=== PATIENT | male | born 1980 | race Caucasian/White ===

== ENCOUNTER 2017-06-06 18:38 | Emergency (ER) | payer SELFPAY ==
[2017-06-06] MEDS ORDERED: Ketorolac 60 MG/2 ML SDV IM ONE (19:06)
[2017-06-06] MEDS ORDERED: Albuterol/Ipratropium 3.0-0.5 MG/3 ML Neb Soln NEB ONE (19:06)
--- NOTE | 2017-06-06 19:14 | EDM.PDOC ---
ED HPI GENERAL MEDICAL PROBLEM - General Chief Complaint: Respiratory Problem Stated Complaint: CEHST PAIN Time Seen by Provider: 06/06/17 19:00 Source of Information: Reports: Patient History Limitations: Reports: No Limitations - History of Present Illness INITIAL COMMENTS - FREE TEXT/NARRATIVE: History of present illness: [36-year-old male comes in complaining of cough, rib pain with cough, and intermittent shortness of breath.] Review of systems: As per history of present illness and below otherwise all systems reviewed and negative. Past medical history: As per history of present illness and as reviewed below otherwise noncontributory. Surgical history: As per history of present illness and as reviewed below otherwise noncontributory. Social history: No reported history of drug or alcohol abuse. Family history: As per history of present illness and as reviewed below otherwise noncontributory. Physical exam: HEENT: Atraumatic, normocephalic, pupils reactive, negative for conjunctival pallor or scleral icterus, mucous membranes moist with orophangeal erythema, neck supple, nontender, trachea midline. Lungs: Clear to auscultation, breath sounds equal bilaterally, chest nontender. Heart: S1S2, regular, negative for clicks, rubs, or JVD. Abdomen: Soft, nondistended, nontender. Negative for masses or hepatosplenomegaly. Negative for costovertebral tenderness. Pelvis: Stable nontender. Genitourinary: Deferred. Rectal: Deferred. Extremities: Atraumatic, negative for cords or calf pain. Neurovascular unremarkable. Neuro: Awake, alert, oriented. Cranial nerves II through XII unremarkable. Cerebellum unremarkable. Motor and sensory unremarkable throughout. Exam nonfocal. Diagnostics: [Chest x-ray, CBC, CMP, influenza AB] Therapeutics: [Duo Neb] Impression: [Influenza A] Plan: [inhaler, spacer] Definitive disposition and diagnosis as appropriate pending reevaluation and review of above. Left Rib/Back Pain Score (Numeric/FACES): 7 - Related Data Allergies Allergy/AdvReac Type Severity Reaction Status Date / Time No Known Allergies Allergy Verified 06/06/17 19:08 Home Meds: Home Meds . [No Known Home Meds] 06/06/17 [History] ED ROS GENERAL - Review of Systems Review Of Systems: See Below (History of present illness) ED EXAM, GENERAL - Physical Exam Exam: See Below (See history of present illness) Course - Vital Signs Last Recorded V/S: Last Vital Signs Temp 37.8 C 06/06/17 19:09 Pulse 94 06/06/17 19:09 Resp 18 06/06/17 19:09 BP 131/60 06/06/17 19:09 Pulse Ox 94 L 06/06/17 19:09 - Orders/Labs/Meds Orders: Active Orders 24 hr Category Date Time Status RT Aerosol Therapy [RC] ASDIRECTED Care 06/06/17 19:07 Active Chest 2V [CR] Stat Exams 06/06/17 19:14 Ordered Orphenadrine [Norflex] Med 06/06/17 19:15 Active 60 mg IM Q12H Medication Orders Orphenadrine Citrate (Norflex) 60 mg IM Q12H AKHIL Last Admin: 06/06/17 19:45 Dose: 60 mg Meds: Medications Generic Name Dose Route Start Last Admin Trade Name Freq PRN Reason Stop Dose Admin Orphenadrine Citrate 60 mg 06/06/17 19:15 06/06/17 19:45 Norflex IM 60 mg Q12H AKHIL Administration Discontinued Medications Generic Name Dose Route Start Last Admin Trade Name Freq PRN Reason Stop Dose Admin Albuterol/Ipratropium 3 ml 06/06/17 19:06 06/06/17 19:42 Duoneb 3.0-0.5 Mg/3 Ml NEB 06/06/17 19:07 3 ml ONETIME ONE Administration Ketorolac Tromethamine 60 mg 06/06/17 19:06 06/06/17 19:43 Toradol IM 06/06/17 19:07 60 mg ONETIME ONE Administration Departure - Departure Time of Disposition: 19:55 Disposition: Home, Self-Care 01 Condition: Good Clinical Impression: Influenza, Pharyngitis - Discharge Information Referrals: PCP,None [Primary Care Provider] - Forms: ED Department Discharge Additional Instructions: The following information is given to patients seen in the emergency department who are being discharged to home. This information is to outline your options for follow-up care. We provide all patients seen in our emergency department with a follow-up referral. The need for follow-up, as well as the timing and circumstances, are variable depending upon the specifics of your emergency department visit. If you don't have a primary care physician on staff, we will provide you with a referral. We always advise you to contact your personal physician following an emergency department visit to inform them of the circumstance of the visit and for follow-up with them and/or the need for any referrals to a consulting specialist. The emergency department will also refer you to a specialist when appropriate. This referral assures that you have the opportunity for follow-up care with a specialist. All of these measure are taken in an effort to provide you with optimal care, which includes your follow-up. Under all circumstances we always encourage you to contact your private physician who remains a resource for coordinating your care. When calling for follow-up care, please make the office aware that this follow-up is from your recent emergency room visit. If for any reason you are refused follow-up, please contact the [facility] Emergency Department at and asked to speak to the emergency department charge nurse. Take medicine as directed follow up with PCP in 3-5 miroslava Return to ER as needed as discussed - My Orders Last 24 Hours: My Active Orders 06/06/17 19:07 RT Aerosol Therapy [RC] ASDIRECTED 06/06/17 19:14 Chest 2V [CR] Stat 06/06/17 19:15 Orphenadrine [Norflex] 60 mg IM Q12H - Assessment/Plan Last 24 Hours: My Active Orders 06/06/17 19:07 RT Aerosol Therapy [RC] ASDIRECTED 06/06/17 19:14 Chest 2V [CR] Stat 06/06/17 19:15 Orphenadrine [Norflex] 60 mg IM Q12H
--- NOTE | 2017-06-10 17:15 | CR ---
EXAM DATE: 06/06/17 PATIENT'S AGE: 36 Patient: RAFAEL ISRAEL Facility: [place], [place] Site . Site : 1980 Study: XRay Chest [id number] 8:06:53 PM Ordering Physician: Doctor Tinoco Final Report: INDICATION: Cough TECHNIQUE: Chest radiograph 2 views COMPARISON: None FINDINGS: Cardiovascular and mediastinum: The heart silhouette is normal in size and morphology. The mediastinum is normal in appearance. Lungs and pleural spaces: Both lungs are unremarkable in appearance. No sign of pleural effusion seen. No pneumothorax is identified. Bones and soft tissues: No significant findings. IMPRESSION: 1. No acute cardiopulmonary disease is seen. Dictated by Edis Das MD @ 06/06/2017 8:21:48 PM Dictated by: Edis Das MD @ 06/06/2017 20:21:52 (Electronic Signature) Report Signed by Proxy. MTDSheree
== END 2017-06-06 20:30 | disposition home or self-care (01) ==
LOC: MW.ED 18:38
DX: J10.1 Influenza due to other identified influenza virus with other respiratory manifestations (principal)
CPT/HCPCS: 71020; 87804; 94640; 96372; 99284; J1885; J2360; 99283

== ENCOUNTER 2018-07-12 22:09 | Emergency (ER) | payer SELFPAY ==
[2018-07-12] MEDS ORDERED: methylPREDNISolone Sodium Succinate 125 MG/2 ML SDV IM ONE (22:14)
[2018-07-12] MEDS ORDERED: Albuterol/Ipratropium 3.0-0.5 MG/3 ML Neb Soln NEB ONE (22:14)
--- NOTE | 2018-07-12 22:15 | EDM.PDOC ---
ED HPI GENERAL MEDICAL PROBLEM - General Stated Complaint: ASTHMA Time Seen by Provider: 07/12/18 22:15 Source of Information: Reports: Patient - History of Present Illness INITIAL COMMENTS - FREE TEXT/NARRATIVE: HISTORY AND PHYSICAL: History of present illness: [Patient with asthma presents with asthma exacerbation as he has been out of his inhaler is been in the cold weather and shoveling snow which is triggered his asthma is, chest is tight he does not have labored breathing and is not in any distress no fever nausea vomiting chills sweats ] Review of systems: As per history of present illness and below otherwise all systems reviewed and negative. Past medical history: As per history of present illness and as reviewed below otherwise noncontributory. Surgical history: As per history of present illness and as reviewed below otherwise noncontributory. Social history: No reported history of drug or alcohol abuse. Family history: As per history of present illness and as reviewed below otherwise noncontributory. Physical exam: HEENT: Atraumatic, normocephalic, pupils reactive, negative for conjunctival pallor or scleral icterus, mucous membranes moist, throat clear, neck supple, nontender, trachea midline. Lungs: Clear to auscultation, breath sounds equal bilaterally, chest nontender. Heart: S1S2, regular, negative for clicks, rubs, or JVD. Abdomen: Soft, nondistended, nontender. Negative for masses or hepatosplenomegaly. Negative for costovertebral tenderness. Pelvis: Stable nontender. Genitourinary: Deferred. Rectal: Deferred. Extremities: Atraumatic, negative for cords or calf pain. Neurovascular unremarkable. Neuro: Awake, alert, oriented. Cranial nerves II through XII unremarkable. Cerebellum unremarkable. Motor and sensory unremarkable throughout. Exam nonfocal. Diagnostics: []Chest x-ray on file Therapeutics: []DuoNeb Solu-Medrol considered however patient refuses steroids Impression: [] asthma exacerbation Definitive disposition and diagnosis as appropriate pending reevaluation and review of above. - Related Data Allergies Allergy/AdvReac Type Severity Reaction Status Date / Time No Known Allergies Allergy Verified 07/12/18 22:24 Home Meds: Home Meds Albuterol Sulfate [Proair Hfa] 2 puff IH Q6HR #1 hfa.[email or web address] 06/06/17 [Rx] Past Medical History Respiratory History: Reports: Asthma Social & Family History - Family History Family Medical History: Noncontributory ED ROS GENERAL - Review of Systems Review Of Systems: See Below ED EXAM, GENERAL - Physical Exam Exam: See Below Course - Vital Signs Last Recorded V/S: Last Vital Signs Temp 98.6 F 07/12/18 22:21 Pulse 93 07/12/18 22:21 Resp 20 07/12/18 22:21 BP 115/68 07/12/18 22:21 Pulse Ox 95 07/12/18 22:21 - Orders/Labs/Meds Orders: Active Orders 24 hr Category Date Time Status RT Aerosol Therapy [RC] ASDIRECTED Care 07/12/18 22:15 Active Chest 1V Frontal [CR] Stat Exams 07/12/18 22:15 Taken Meds: Medications Discontinued Medications Generic Name Dose Route Start Last Admin Trade Name Freq PRN Reason Stop Dose Admin Albuterol/Ipratropium 3 ml 07/12/18 22:14 07/12/18 22:35 Duoneb 3.0-0.5 Mg/3 Ml NEB 07/12/18 22:15 3 ml ONETIME ONE Administration Methylprednisolone Sodium Succinate 125 mg 07/12/18 22:14 07/12/18 22:49 Solu-Medrol IM 07/12/18 22:15 Not Given ONETIME ONE Departure - Departure Time of Disposition: 23:10 Disposition: Home, Self-Care 01 Condition: Good Clinical Impression: Asthma exacerbation - Discharge Information Additional Instructions: The following information is given to patients seen in the emergency department who are being discharged to home. This information is to outline your options for follow-up care. We provide all patients seen in our emergency department with a follow-up referral. The need for follow-up, as well as the timing and circumstances, are variable depending upon the specifics of your emergency department visit. If you don't have a primary care physician on staff, we will provide you with a referral. We always advise you to contact your personal physician following an emergency department visit to inform them of the circumstance of the visit and for follow-up with them and/or the need for any referrals to a consulting specialist. The emergency department will also refer you to a specialist when appropriate. This referral assures that you have the opportunity for follow-up care with a specialist. All of these measure are taken in an effort to provide you with optimal care, which includes your follow-up. Under all circumstances we always encourage you to contact your private physician who remains a resource for coordinating your care. When calling for follow-up care, please make the office aware that this follow-up is from your recent emergency room visit. If for any reason you are refused follow-up, please contact the [facility] emergency department at and asked to speak to the emergency department charge nurse. - My Orders Last 24 Hours: My Active Orders 07/12/18 22:15 RT Aerosol Therapy [RC] ASDIRECTED Chest 1V Frontal [CR] Stat - Assessment/Plan Last 24 Hours: My Active Orders 07/12/18 22:15 RT Aerosol Therapy [RC] ASDIRECTED Chest 1V Frontal [CR] Stat
--- NOTE | 2018-07-12 23:49 | CR ---
INDICATION: Asthma TECHNIQUE: Chest 1 view COMPARISON: None FINDINGS: Cardiovascular and mediastinum: Heart size and vasculature are normal in caliber and appearance. Lungs and pleural spaces: Lungs are clear. No sign of infiltrate or mass. No sign of pleural effusion. No pneumothorax. Bones and soft tissues: No significant findings. IMPRESSION: No acute or significant findings. Dictated by Ganesh Bae MD @ Jul 12 2018 11:47PM Signed by Dr. Ganesh Bae @ Jul 12 2018 11:48PM
== END 2018-07-12 23:15 | disposition home or self-care (01) ==
LOC: MW.ED 22:09
DX: J45.901 Unspecified asthma with (acute) exacerbation (principal); Z87.891 Personal history of nicotine dependence
CPT/HCPCS: 71045; 71045-26; 94640; 99285-25; J7620-GY

== ENCOUNTER 2018-08-28 19:24 | Emergency (ER) | payer SELFPAY ==
--- NOTE | 2018-08-28 19:40 | EDM.PDOC ---
ED HPI GENERAL MEDICAL PROBLEM - General Chief Complaint: Medication Administration Stated Complaint: SPOKE TO NURSE Time Seen by Provider: 08/28/18 19:40 Source of Information: Reports: Patient - History of Present Illness INITIAL COMMENTS - FREE TEXT/NARRATIVE: HISTORY AND PHYSICAL: History of present illness: [Patient with asthma presents for medication refill of his pro-air inhaler he does use this daily he was unable to get into the clinic as they are remodeling hence he could not follow with his primary care and will be running out of the medication No fever nausea vomiting chills sweats no chest pain shortness breath headache dizziness palpitation no bowel or urine symptoms] Review of systems: As per history of present illness and below otherwise all systems reviewed and negative. Past medical history: As per history of present illness and as reviewed below otherwise noncontributory. Surgical history: As per history of present illness and as reviewed below otherwise noncontributory. Social history: No reported history of drug or alcohol abuse. Family history: As per history of present illness and as reviewed below otherwise noncontributory. Physical exam: HEENT: Atraumatic, normocephalic, pupils reactive, negative for conjunctival pallor or scleral icterus, mucous membranes moist, throat clear, neck supple, nontender, trachea midline. Lungs: Clear to auscultation, breath sounds equal bilaterally, chest nontender. Heart: S1S2, regular, negative for clicks, rubs, or JVD. Abdomen: Soft, nondistended, nontender. Negative for masses or hepatosplenomegaly. Negative for costovertebral tenderness. Pelvis: Stable nontender. Genitourinary: Deferred. Rectal: Deferred. Extremities: Atraumatic, negative for cords or calf pain. Neurovascular unremarkable. Neuro: Awake, alert, oriented. Cranial nerves II through XII unremarkable. Cerebellum unremarkable. Motor and sensory unremarkable throughout. Exam nonfocal. Diagnostics: [] Therapeutics: [HFA #1 no refill ] Impression: [ history of asthma ] Definitive disposition and diagnosis as appropriate pending reevaluation and review of above. - Related Data Allergies Allergy/AdvReac Type Severity Reaction Status Date / Time No Known Allergies Allergy Verified 08/28/18 19:45 Home Meds: Home Meds Albuterol Sulfate [Proair Hfa] 2 puff IH Q6HR #1 hfa.aer.ad 06/06/17 [Rx] Past Medical History Respiratory History: Reports: Asthma Social & Family History - Family History Family Medical History: Noncontributory ED ROS GENERAL - Review of Systems Review Of Systems: See Below ED EXAM, GENERAL - Physical Exam Exam: See Below Course - Vital Signs Last Recorded V/S: Last Vital Signs Temp 98.2 F 08/28/18 19:45 Pulse 99 08/28/18 19:45 Resp 16 08/28/18 19:45 BP 114/68 08/28/18 19:45 Pulse Ox 95 08/28/18 19:45 Departure - Departure Time of Disposition: 20:20 Disposition: Home, Self-Care 01 Condition: Good Clinical Impression: History of asthma - Discharge Information Referrals: PCP,None [Primary Care Provider] - Forms: ED Department Discharge Additional Instructions: The following information is given to patients seen in the emergency department who are being discharged to home. This information is to outline your options for follow-up care. We provide all patients seen in our emergency department with a follow-up referral. The need for follow-up, as well as the timing and circumstances, are variable depending upon the specifics of your emergency department visit. If you don't have a primary care physician on staff, we will provide you with a referral. We always advise you to contact your personal physician following an emergency department visit to inform them of the circumstance of the visit and for follow-up with them and/or the need for any referrals to a consulting specialist. The emergency department will also refer you to a specialist when appropriate. This referral assures that you have the opportunity for follow-up care with a specialist. All of these measure are taken in an effort to provide you with optimal care, which includes your follow-up. Under all circumstances we always encourage you to contact your private physician who remains a resource for coordinating your care. When calling for follow-up care, please make the office aware that this follow-up is from your recent emergency room visit. If for any reason you are refused follow-up, please contact the [facility] emergency department at and asked to speak to the emergency department charge nurse.
== END 2018-08-28 20:35 | disposition home or self-care (01) ==
LOC: MW.ED 19:24
DX: Z76.0 Encounter for issue of repeat prescription (principal); J45.909 Unspecified asthma, uncomplicated
CPT/HCPCS: 99281; 99282